=== PATIENT | female | born 1980 | race Caucasian/White ===

== ENCOUNTER → 2018-08-18 | Outpatient (CLI) | payer OTHER ==
[~2018-08-18] MED LIST: BCP'S; CRUTCH4 USE; ESCI10; HYDACE5; HYDACE5 PO; LORA1; METF500; NAPR500 PO; OXYACE5T PO; PROM25 PO; RXHYDACE PO; RXPROM25 PO
== END | disposition home or self-care (01) ==
LOC: LAB 16:18 → LAB SHORT 16:18
DX: O09.529 Supervision of elderly multigravida, unspecified trimester (principal)
CPT/HCPCS: 87081; 87653

== ENCOUNTER 2018-09-07 15:50 | Inpatient (IN) | payer OTHER ==
[~2018-09-07] VITALS: Ht 170.2 cm; Wt 0.1 kg
[2018-09-07] MEDS ORDERED: METF500C PO (16:13)
[2018-09-07] MEDS ORDERED: Buspirone HCl30 MG PO (16:13)
[2018-09-07] MEDS ORDERED: Zantac150 MG PO (16:14)
[2018-09-07 16:36] LABS: BASOPHILS ABSOLUTE AUTO 0.02 K/mm3 (0.00-0.23); BASOPHILS PERCENT AUTO 0 % (0-2); EOSINOPHILS ABSOLUTE AUTO 0.07 K/mm3 (0.00-0.68); EOSINOPHILS PERCENT AUTO 1 % (0-6); Hematocrit 37.5 % (33.0-51.0); Hemoglobin 12.6 g/dL (11.5-16.0); IMMATURE GRAN ABSOLUTE AUTO 0.04 K/mm3 (0.00-0.10); IMMATURE GRAN PERCENT AUTO 0 % (0-1); LYMPHOCYTES ABSOLUTE AUTO 1.64 K/mm3 (0.84-5.20); LYMPHOCYTES PERCENT AUTO 18 % (21-46); MONOCYTES ABSOLUTE AUTO 0.38 K/mm3 (0.16-1.47); MONOCYTES PERCENT AUTO 4 % (4-13); Mean Corpuscular HGB 27.8 pg (26.0-34.0); Mean Corpuscular HGB Conc 33.6 g/dL (31.5-36.5); Mean Corpuscular Volume 83 fL (80-100); Mean Platelet Volume 11.4 fL (9.1-12.4); NEUTROPHILS PERCENT AUTO 77 % (41-73); Platelet Count 194 K/mm3 (150-400); RDW Coefficient Variation 14.8 % (11.7-14.2); RDW Standard Deviation 43.8 fL (35.1-46.3); Red Blood Cell Count 4.54 M/mm3 (3.80-5.20); White Blood Cell Count 9.25 K/mm3 (4.00-11.30)
--- NOTE | 2018-09-08 07:21 | NUR ---
ASSUMED CARE OF PATIENT WALKED INTO ROOM WITH DR ISABEL, DR MAAME DELAROSA AT 0721, TRIED TO PLACE SCALP X2 UNABLE TO GET SCALP PLACED, BIOX PLACED, OR CALLED, PAK PLACED, CONSENTS SIGNED, PLACED ON HANDS AND KNEES THEN ABLE TO GET FHT, WITH BIOX ON MOM RUNNING, PREP FOR OR DONE, TO OR AT 0743 BABY DELIVERED UNDER GENERAL AT 0751
[2018-09-08 08:09] LABS: PCO2 Cord - Arterial 60.4 mmHg (40-50); pH Cord - Arterial 7.22 (7.28-7.35)
[2018-09-08 08:11] LABS: PCO2 Cord - Venous 41.3 mmHg (40-50); PO2 Cord - Venous 38.5 mmHg (28-32); pH Umbilical Cord - Venous 7.31 (7.26-7.35)
--- NOTE | 2018-09-08 08:54 | NUR ---
09/08/18 0854 Erinn Barroso PATIENT TAKEN TO OR FOR STAT REPEAT SECTOION FOR CORD PROLAPSE. NEBORN BABY GIRL BORN AT 0751, APGARS 9/9, WEIGHT 3310 GRAMS, HEAD 13 INCHEST, CHEST 14 INCHES, LENGTH 19.5 INCHES. EBL 950. PT GIVEN GENERAL SEDATION FOR TIME SENSETIVE/EMERGENCY REASON. PT TAKEN VIA BED TO PACU.
--- NOTE | 2018-09-08 10:39 | NUR ---
Obtained consent to provide care under supervision of RN 09/08/18. Pt mother present at time of consent.
--- NOTE | 2018-09-08 16:43 | NUR ---
dr palmer updated of bruise and saturated dressing, dressing re-enforced with ABD pad and annabelle care done
[2018-09-09 05:56] LABS: Hematocrit 26.6 % (33.0-51.0); Hemoglobin 8.9 g/dL (11.5-16.0); Mean Corpuscular HGB 28.1 pg (26.0-34.0); Mean Corpuscular HGB Conc 33.5 g/dL (31.5-36.5); Mean Corpuscular Volume 84 fL (80-100); Mean Platelet Volume 10.5 fL (9.1-12.4); Platelet Count 175 K/mm3 (150-400); RDW Coefficient Variation 14.9 % (11.7-14.2); RDW Standard Deviation 45.4 fL (35.1-46.3); Red Blood Cell Count 3.17 M/mm3 (3.80-5.20); White Blood Cell Count 11.27 K/mm3 (4.00-11.30)
--- NOTE | 2018-09-09 10:00 | NUR ---
report to bryan brower from [phone], assuming care back
--- NOTE | 2018-09-09 10:02 | NUR ---
up showered, voided, bed linen changed
--- NOTE | 2018-09-09 13:02 | NUR ---
CONSULT. MOM HAS HISTORY OF LOW PRODUCTION AND PROBLEMS WITH LATCHING WITH FIRST BABY. THIS BABY IS TRYING HARD TO LATCH. INSTRUCT/DEMO POSITIONING TO HELP OBTAIN A DEEPER ASYMETRIC LATCH AND THEN FURTHER WIDENING THE LATCH UNTIL COMFORTABLE. MOM ABLE TO SELF EBM WELL AND IT IS RELEASING WELL. INSTRUCT IN CHANGES TO EXPECT DURING THE FIRST WEEK WITH FEEDINGS AND WITH BABY AND REFERRED TO [facility] AND PAGE 18 OF [facility] FOR PHOTOS AND INFORMATION. DENIES FURTHER QUESTIONS. LOVING WITH BABY AND HANDLES HER WELL.
--- NOTE | 2018-09-09 19:33 | NUR ---
PT PASSED GOLF BALL SIZED BLOOD CLOT IN TOILET. PT REPORTS SHE IS NOT SATURATING PADS WITHIN 1 HOUR. WILL MONITOR FOR MORE CLOTS OR INCREASED BLEEDING THROUGHOUT THE NIGHT. JONG
--- NOTE | 2018-09-10 06:37 | NUR ---
THIS MORNING 0630 PT PASSED A FEW SMALL BLOOD CLOTS IN TOILET. DIFFICULT TO SEE. PROBABLY 3 CLOTS 2CM EACH. JONG
--- NOTE | 2018-09-10 08:06 | NUR ---
PATIENT TO START PUMPING AFTER EVERY FEED
[2018-09-10] MEDS ORDERED: IBUP800 (09:38)
[2018-09-10] MEDS ORDERED: Percocet 5-3251 EACH (09:39)
[2018-09-10] MEDS ORDERED: SIME80CH (09:39)
== END 2018-09-10 11:20 | disposition home or self-care (01) | DRG 786 ==
LOC: OBS 15:50 → BC 15:51 → OBS 15:55 → BC 15:56
PROVIDERS: ADMIT Obstetrics & Gynecology
PROC: 10D00Z1 Extraction of Products of Conception, Low, Open Approach (ICD-10-PCS; principal; 2018-09-08 07:30)
DX: O69.0XX0 Labor and delivery complicated by prolapse of cord, not applicable or unspecified (principal); O24.12 Pre-existing type 2 diabetes mellitus, in childbirth; Z3A.39 39 weeks gestation of pregnancy; Z37.0 Single live birth; O34.211 Maternal care for low transverse scar from previous cesarean delivery; E11.9 Type 2 diabetes mellitus without complications; Z79.84 Long term (current) use of oral hypoglycemic drugs
CPT/HCPCS: 36415; 36416; 82803; 82947; 85025; 85027; 86850; 86900; 86901; 90471; 90707; J0330; J0690; J1885; J2210; J2405; J2590; J2765; J3010; J7120

== ENCOUNTER → 2019-10-06 | Outpatient (CLI) | payer OTHER ==
[~2019-10-06] MED LIST changes: +Buspirone HCl30 MG PO; +IBUP800; +METF500C PO; +Percocet 5-3251 EACH; +SIME80CH; +Zantac150 MG PO
[2019-10-06 19:18] LABS: Protein, Urine Quantitative <5.0 mg/dL (0.0-11.9)
== END | disposition home or self-care (01) ==
LOC: LAB 10:45 → LAB SHORT 10:45
PROVIDERS: Obstetrics & Gynecology
DX: E11.9 Type 2 diabetes mellitus without complications (principal)
CPT/HCPCS: 81050; 84156

== ENCOUNTER → 2019-10-22 | Outpatient (CLI) | payer OTHER ==
[2019-10-24 02:06] LABS: CHLAMYDIA TRACHOMATIS, NAA Negative (Negative); HPV 16 Negative (Negative); HPV 18 Negative (Negative); HPV OTHER HR TYPES Negative (Negative); NEISSERIA GONORRHOEAE, NAA Negative (Negative)
== END | disposition home or self-care (01) ==
LOC: LAB 14:15 → LAB SHORT 14:15
PROVIDERS: Obstetrics & Gynecology
DX: Z01.419 Encounter for gynecological examination (general) (routine) without abnormal findings (principal)
CPT/HCPCS: 87491; 87591; 87624; G0123

== ENCOUNTER → 2020-02-23 | Outpatient (CLI) | payer OTHER ==
[2020-02-24 11:10] LABS: Candida species (DNA Probe) Negative (NEGATIVE); G. vaginalis (DNA Probe) Positive (NEGATIVE); T. vaginalis (DNA Probe) Negative (NEGATIVE)
== END | disposition home or self-care (01) ==
LOC: LAB 11:45 → LAB SHORT 11:45
PROVIDERS: Obstetrics & Gynecology
DX: N76.0 Acute vaginitis (principal)
CPT/HCPCS: 87480; 87510; 87660

== ENCOUNTER → 2020-03-29 | Outpatient (CLI) | payer OTHER | END | disposition home or self-care (01) | LOC: LAB 12:00 → LAB SHORT 12:00 | DX: O09.93 Supervision of high risk pregnancy, unspecified, third trimester (principal) | CPT/HCPCS: 87081; 87653 ==

== ENCOUNTER 2020-04-20 14:13 | Inpatient (IN) | payer OTHER ==
[~2020-04-20] VITALS: Ht 170.2 cm; Wt 128.0 kg
[2020-04-21] MEDS ORDERED: METF500 PO (14:58)
[2020-04-21] MEDS ORDERED: OMEP20ER PO (14:59)
[2020-04-21] MEDS ORDERED: ESCI20 PO (15:00)
[2020-04-21] MEDS ORDERED: PRENATAL TABLE1 EAC2 PO (15:01)
[2020-04-21] MEDS ORDERED: ASPIR 8181 M1 PO (15:01)
[2020-04-25 06:12] LABS: BASOPHILS ABSOLUTE AUTO 0.04 K/mm3 (0.00-0.23); BASOPHILS PERCENT AUTO 0 % (0-2); EOSINOPHILS ABSOLUTE AUTO 0.12 K/mm3 (0.00-0.68); EOSINOPHILS PERCENT AUTO 1 % (0-6); Hematocrit 40.3 % (33.0-51.0); Hemoglobin 12.9 g/dL (11.5-16.0); IMMATURE GRAN ABSOLUTE AUTO 0.04 K/mm3 (0.00-0.10); IMMATURE GRAN PERCENT AUTO 0 % (0-1); LYMPHOCYTES ABSOLUTE AUTO 2.06 K/mm3 (0.84-5.20); LYMPHOCYTES PERCENT AUTO 21 % (21-46); MONOCYTES ABSOLUTE AUTO 0.59 K/mm3 (0.16-1.47); MONOCYTES PERCENT AUTO 6 % (4-13); Mean Corpuscular HGB 26.3 pg (26.0-34.0); Mean Corpuscular Volume 82 fL (80-100); Mean Platelet Volume 11.7 fL (9.1-12.4); NEUTROPHILS ABSOLUTE AUTO 7.02 K/mm3 (1.96-9.15); NEUTROPHILS PERCENT AUTO 71 % (41-73); Platelet Count 183 K/mm3 (150-400); RDW Coefficient Variation 14.7 % (11.7-14.2); RDW Standard Deviation 43.8 fL (35.1-46.3); Red Blood Cell Count 4.91 M/mm3 (3.80-5.20); White Blood Cell Count 9.87 K/mm3 (4.00-11.30)
--- NOTE | 2020-04-25 08:24 | NUR ---
04/25/20 0824 Rose Olmos VIABLE MALE BORN BY CSECTION AT 0805. SPONTANTEOUS CRY AND THEN TO STABLETTE FOR PPV. SEE DELIVERY SUMMARY FOR WEIGHT AND APGARS. CORD BLOOD GIVEN TO KRISTA CUNNINGHAM AND CORD GASSES PLACED ON ICE AND GIVEN TO RT.
[2020-04-25 08:35] LABS: PCO2 Cord - Arterial 61.5 mmHg (40-50); PO2 Cord - Arterial 14 mmHg (16-20); pH Cord - Arterial 7.22 (7.28-7.35)
[2020-04-25 08:36] LABS: PCO2 Cord - Venous 45.1 mmHg (40-50); PO2 Cord - Venous 25.7 mmHg (28-32)
--- NOTE | 2020-04-25 14:20 | NUR ---
CARLOS CARE DONE
--- NOTE | 2020-04-25 15:19 | NUR ---
RN ROUNDED TO HELP W/ . ATTEMPTED TO HELP LATCH NB, NB NOT SHOWING ANY INTEREST IN , SEVERAL DROPS OF COLOSTRUM HAND EXPRESSED INTO NB MOUTH. INSTRUCTED MOM TO ATTEMPT TO LATCH NB EVERY 2-3 HOURS IF NB NOT LATCHING, SUPPLEMENT W/ FORMULA AND PUMP FOR 10 MINUTES ON HIGHEST COMFORTABLE SETTINGS. PT VERBALIZED UNDERSTANDING, RN WILL ROUND AGAIN IN THE MORNING.
--- NOTE | 2020-04-26 00:05 | NUR ---
PT INSTRUCTED ON USE OF BREAST PUMP. PT DEMONSTRATES PROPER USE.
--- NOTE | 2020-04-26 01:19 | NUR ---
0100-SBAR FROM Nolvia LAWSON RN, ASSUMED CARE OF PT AT THIS TIME.
[2020-04-26 05:57] LABS: Hematocrit 28.8 % (33.0-51.0); Hemoglobin 9.2 g/dL (11.5-16.0); Mean Corpuscular HGB 26.4 pg (26.0-34.0); Mean Corpuscular HGB Conc 31.9 g/dL (31.5-36.5); Mean Corpuscular Volume 83 fL (80-100); Mean Platelet Volume 10.9 fL (9.1-12.4); Platelet Count 155 K/mm3 (150-400); RDW Coefficient Variation 14.9 % (11.7-14.2); RDW Standard Deviation 44.6 fL (35.1-46.3); Red Blood Cell Count 3.48 M/mm3 (3.80-5.20); White Blood Cell Count 9.95 K/mm3 (4.00-11.30)
--- NOTE | 2020-04-26 09:01 | NUR ---
RN ROUNDED TO HELP W/ . PT STATES SHE HAS MOSTLY FORMULA FED NB THROUGHOUT THE NIGHT, HAS PUMPED SOME AND GIVEN NB THE DROPS. ENCOURAGED PT TO CONTINUE TO LATCH NB OR PUMP EVERY 2-3 HOURS TO STIMULATE IN MILK SUPPLY. PT HAS HISTORY OF PCOS AND LOW MILK SUPPLY W/ OLDER TWO CHILDREN. RN TALKED W/ PT ABOUT TRYING HARD SHE CAN THESE FIRST 3 DAYS TO SEE WHAT KIND OF SUPPLY SHE CAN GET IN, TALKED W/ PT ABOUT GLANDULAR TISSUE AND OFTEN WOMEN W/ PCOS DO NOT HAVE ENOUGH GLANDULAR TISSUE FOR A MILK SUPPLY. PT DENIES ANY FURTHER QUESTIONS OR CONCERNS. FURTHER LACATION SUPPORT OFFERED IF PT DESIRES.
--- NOTE | 2020-04-26 17:19 | NUR ---
patient ate and forgot to call for AC bloodsugar will do at HS
[2020-04-27] MEDS ORDERED: IBUP800 (09:28)
[2020-04-27] MEDS ORDERED: Percocet 5-3251 EACH (09:28)
[2020-04-27] MEDS ORDERED: Loratadine10 MG (09:29)
== END 2020-04-27 12:15 | disposition home or self-care (01) | DRG 788 ==
LOC: BC 04-25 05:40
PROVIDERS: ADMIT Obstetrics & Gynecology
PROC: 10D00Z1 Extraction of Products of Conception, Low, Open Approach (ICD-10-PCS; principal; 2020-04-25 07:30)
DX: O24.12 Pre-existing type 2 diabetes mellitus, in childbirth (principal); O99.214 Obesity complicating childbirth; E66.01 Morbid (severe) obesity due to excess calories; O34.211 Maternal care for low transverse scar from previous cesarean delivery; Z3A.39 39 weeks gestation of pregnancy; Z37.0 Single live birth; O99.893 Other specified diseases and conditions complicating puerperium; R21 Rash and other nonspecific skin eruption; O99.344 Other mental disorders complicating childbirth; F41.9 Anxiety disorder, unspecified; O77.0 Labor and delivery complicated by meconium in amniotic fluid; Z79.84 Long term (current) use of oral hypoglycemic drugs
CPT/HCPCS: 36415; 36416; 82803; 82947; 85025; 85027; A9270; J0690; J1885; J2210; J2250; J2405; J2590; J2704; J2765; J3010; J7120; Q0163

== ENCOUNTER → 2021-12-08 | Outpatient (CLI) | payer OTHER ==
[~2021-12-08] MED LIST changes: +ASPIR 8181 M1 PO; +ESCI20 PO; +Loratadine10 MG; +METF500 PO; +OMEP20ER PO; +PRENATAL TABLE1 EAC2 PO
[2021-12-08 17:25] LABS: Source, Urine Clean Catch
[2021-12-08 18:51] LABS: Amorphous Heavy (0-Heavy)
[2021-12-08 18:53] LABS: Bacteria Few /hpf; Red Blood Cells, Urine 0-2 /hpf (0-2); Squamous Epithelial Cells Few /hpf (Few)
[2021-12-08 18:54] LABS: U Amphetamine Screen Not Detected; U Barbituate Screen Not Detected; U Benzodiazapine Screen Not Detected; U Buprenorphine Screen Not Detected; U Cannabinoids Screen Not Detected; U Cocaine Screen Not Detected; U Methadone Screen Not Detected; U Methamphetamine Screen Not Detected; U Opiates Screen Not Detected; U Oxycodone Screen Not Detected; U Phencyclidine Screen Not Detected; U Propoxyphene Screen Not Detected
== END ==
LOC: LAB SHORT 17:23
PROVIDERS: Obstetrics & Gynecology
DX: Z34.81 Encounter for supervision of other normal pregnancy, first trimester (principal); Z3A.00 Weeks of gestation of pregnancy not specified
CPT/HCPCS: 81015; 87086

== ENCOUNTER → 2022-06-26 | Outpatient (CLI) | payer OTHER | END | disposition home or self-care (01) | LOC: LAB SHORT 16:39 → LAB 16:39 | DX: O09.893 Supervision of other high risk pregnancies, third trimester (principal) | CPT/HCPCS: 87081; 87150 ==

== ENCOUNTER 2022-07-06 05:35 | Inpatient (IN) | payer OTHER ==
[~2022-07-06] VITALS: Ht 167.6 cm; Wt 129.5 kg
[2022-07-06] MEDS ORDERED: METF500C PO (06:21)
[2022-07-06 06:32] LABS: BASOPHILS ABSOLUTE AUTO 0.05 K/mm3 (0.00-0.23); BASOPHILS PERCENT AUTO 1 % (0-2); EOSINOPHILS ABSOLUTE AUTO 0.08 K/mm3 (0.00-0.68); EOSINOPHILS PERCENT AUTO 1 % (0-6); Hematocrit 37.7 % (33.0-51.0); Hemoglobin 12.8 g/dL (11.5-16.0); IMMATURE GRAN ABSOLUTE AUTO 0.04 K/mm3 (0.00-0.10); IMMATURE GRAN PERCENT AUTO 1 % (0-1); LYMPHOCYTES ABSOLUTE AUTO 1.97 K/mm3 (0.84-5.20); LYMPHOCYTES PERCENT AUTO 25 % (21-46); MONOCYTES ABSOLUTE AUTO 0.45 K/mm3 (0.16-1.47); MONOCYTES PERCENT AUTO 6 % (4-13); Mean Corpuscular HGB 26.6 pg (26.0-34.0); Mean Corpuscular Volume 78 fL (80-100); NEUTROPHILS ABSOLUTE AUTO 5.28 K/mm3 (1.96-9.15); NEUTROPHILS PERCENT AUTO 67 % (41-73); Platelet Count 185 K/mm3 (150-400); RDW Coefficient Variation 15.1 % (11.7-14.2); RDW Standard Deviation 42.3 fL (35.1-46.3); Red Blood Cell Count 4.82 M/mm3 (3.80-5.20); White Blood Cell Count 7.87 K/mm3 (4.00-11.30)
[2022-07-06 08:19] LABS: PCO2 Cord - Arterial 79.8 mmHg (40-50); PO2 Cord - Arterial 23.7 mmHg (16-20); pH Cord - Arterial 7.08 (7.28-7.35)
[2022-07-06 08:20] LABS: PCO2 Cord - Venous 51.9 mmHg (40-50); PO2 Cord - Venous 16.2 mmHg (28-32); pH Umbilical Cord - Venous 7.28 (7.26-7.35)
--- NOTE | 2022-07-06 08:56 | NUR ---
07/06/22 0856 Marianne Deleon DELIVERY OF VIABLE FEMALE AT 0800, BLOOD GAS SENT, CORD BLOOD GIVEN TO DIONE CUNNINGHAM, BABY TO NURSERY ON CPAP WEIGHT 3430 GM
--- NOTE | 2022-07-06 11:02 | NUR ---
1045 patient refused abdominal binder. explained importance of wearing abdominal binder to promote comfort and healing. patient states she that with her privious c/s the binder didn't fit well and she doesn't want to wear it
--- NOTE | 2022-07-06 14:20 | NUR ---
1400 report to gurjit zavala rnc
[2022-07-07 10:26] LABS: BASOPHILS ABSOLUTE AUTO 0.04 K/mm3 (0.00-0.23); BASOPHILS PERCENT AUTO 1 % (0-2); EOSINOPHILS ABSOLUTE AUTO 0.12 K/mm3 (0.00-0.68); EOSINOPHILS PERCENT AUTO 1 % (0-6); Hematocrit 33.6 % (33.0-51.0); Hemoglobin 11.2 g/dL (11.5-16.0); IMMATURE GRAN ABSOLUTE AUTO 0.05 K/mm3 (0.00-0.10); IMMATURE GRAN PERCENT AUTO 1 % (0-1); LYMPHOCYTES PERCENT AUTO 18 % (21-46); MONOCYTES ABSOLUTE AUTO 0.48 K/mm3 (0.16-1.47); MONOCYTES PERCENT AUTO 6 % (4-13); Mean Corpuscular HGB 26.8 pg (26.0-34.0); Mean Corpuscular HGB Conc 33.3 g/dL (31.5-36.5); Mean Corpuscular Volume 80 fL (80-100); Mean Platelet Volume 10.9 fL (9.1-12.4); NEUTROPHILS ABSOLUTE AUTO 6.22 K/mm3 (1.96-9.15); NEUTROPHILS PERCENT AUTO 74 % (41-73); Platelet Count 174 K/mm3 (150-400); RDW Coefficient Variation 15.3 % (11.7-14.2); RDW Standard Deviation 44.2 fL (35.1-46.3); Red Blood Cell Count 4.18 M/mm3 (3.80-5.20); White Blood Cell Count 8.41 K/mm3 (4.00-11.30)
--- NOTE | 2022-07-07 18:40 | NUR ---
STABLE PT CARING FOR SELF AND NB WELL BREAST AND BOTTLE FEEDING NB HAVING GOOD PAIN CONTROL WITH PO MEDS REPT TO ON COMING SHIFT
[2022-07-08] MEDS ORDERED: PRENATAL TABLE1 EAC2 PO (11:19)
[2022-07-08] MEDS ORDERED: IBUP800 PO (11:20)
[2022-07-08] MEDS ORDERED: ACET500 PO (11:21)
[2022-07-08] MEDS ORDERED: DOCU100 PO (11:22)
--- NOTE | 2022-07-08 11:37 | NUR ---
PATIENT DECLINED CBG PRIOR TO LUNCH
--- NOTE | 2022-07-08 11:46 | NUR ---
DISCHARGE PACKET GIVEN, REVIEWED DISCHARGE FOLDER, ANSWERED QUESTIONS, PATIENT DOING TOTAL CARE FOR SELF AND NB WELL, DISCHARGE TEACHING COMPLETED,
--- NOTE | 2022-07-08 12:30 | NUR ---
1225 DISCHARGED TO HOME WITH NB
--- NOTE | 2022-07-09 10:53 | NUR ---
UPDATED L&D PER EMR/RN
== END 2022-07-08 12:17 | disposition home or self-care (01) | DRG 783 ==
LOC: BC 05:35
PROVIDERS: ADMIT Obstetrics & Gynecology
PROC: 0UB70ZZ Excision of Bilateral Fallopian Tubes, Open Approach (ICD-10-PCS; 2022-07-06)
PROC: 10D00Z1 Extraction of Products of Conception, Low, Open Approach (ICD-10-PCS; principal; 2022-07-06 07:30)
DX: O34.593 Maternal care for other abnormalities of gravid uterus, third trimester (principal); O24.12 Pre-existing type 2 diabetes mellitus, in childbirth; O24.919 Unspecified diabetes mellitus in pregnancy, unspecified trimester; O34.211 Maternal care for low transverse scar from previous cesarean delivery; O09.893 Supervision of other high risk pregnancies, third trimester; Z30.2 Encounter for sterilization; Z37.0 Single live birth; Z3A.38 38 weeks gestation of pregnancy; O99.214 Obesity complicating childbirth; E66.9 Obesity, unspecified; O77.0 Labor and delivery complicated by meconium in amniotic fluid; Z79.84 Long term (current) use of oral hypoglycemic drugs; O99.344 Other mental disorders complicating childbirth; F32.A Depression, unspecified; F41.9 Anxiety disorder, unspecified
CPT/HCPCS: 36415; 36416; 82803; 82947; 85025; 86850; 86900; 86901; 88302; A9270; J1885; J2270; J2765; J3010; J7120

== ENCOUNTER → 2024-07-27 | Outpatient (CLI) | payer OTHER ==
[~2024-07-27] MED LIST changes: +ACET500 PO; +DOCU100 PO; +IBUP800 PO
== END | disposition home or self-care (01) ==
LOC: LAB SHORT 11:15 → LAB 11:15
DX: G57.61 Lesion of plantar nerve, right lower limb (principal)
CPT/HCPCS: 88304